=== PATIENT | female | born 1995 | race American Indian/Alaskan Native ===

== ENCOUNTER 2016-05-03 05:00 | Outpatient (CLI) | payer MEDICAID, OTHER ==
[2016-05-03] MEDS ORDERED: LACTATED RINGERS 1,000 ML ONE (05:41)
[2016-05-03] MEDS ORDERED: LACTATED RINGERS 1,000 ML IV ONE (06:02)
[2016-05-03 06:50] VITALS: BP 119/60
[2016-05-03 06:53] LABS: Bilirubin,Urine NEG (Negative); Blood,Urine SM (Negative); Ketones,Urine NEG (Negative); Leukocyte Esterase,Urine NEG (Negative); Mucus,Urine FEW /HPF; Nitrite,Urine NEG (Negative); Protein,Urine <15 mg/dL mg/dL (Negative); Urobilinogen,Urine < 2.0 mg/dL (<2.0)
== END 2016-05-03 08:30 | disposition home or self-care (01) ==
LOC: TRG 05:00
PROVIDERS: ATTEND Obstetrics & Gynecology
DX: O26.893 Other specified pregnancy related conditions, third trimester (principal); O46.93 Antepartum hemorrhage, unspecified, third trimester; R25.2 Cramp and spasm; Z3A.35 35 weeks gestation of pregnancy
CPT/HCPCS: 81001; 96360; 96361; J7120

== ENCOUNTER 2016-05-08 11:51 | Outpatient (CLI) | payer MEDICAID ==
--- NOTE | 2016-05-08 14:19 | Ultrasound Report ---
OB LIMITED Technique: Transabdominal ultrasound with Doppler interrogation. Gestation: Single Position: Cephalic Amniotic Fluid: Normal TIFFANIE = 11.4 cm Heart Rate: 155 BPM
--- NOTE | 2016-05-08 14:19 | Ultrasound Report ---
BIOPHYSICAL PROFILE: Technique: Transabdominal ultrasound with Doppler interrogation. 2 - breathing movements 2 - movements 2 - posture and tone 2 - Qualitative amniotic fluid volume 8 - TOTAL SCORE OF POSSIBLE 8 Heart Rate (bpm) 153
== END 2016-05-08 13:41 | disposition home or self-care (01) ==
LOC: TRG 11:51
PROVIDERS: ATTEND Obstetrics & Gynecology
DX: Z34.90 Encounter for supervision of normal pregnancy, unspecified, unspecified trimester (principal)
CPT/HCPCS: 76815; 76819

== ENCOUNTER 2016-05-29 05:29 | Inpatient (IN) | payer MEDICAID ==
[2016-05-29] MEDS: LACTATED RINGERS 1,000 ML IV NR ×2 (05:55→06:10)
[2016-05-29] MEDS ORDERED: LACTATED RINGERS 1,000 ML ONE ×2 (05:55→05:59)
[2016-05-29] MEDS ORDERED: BICITRA PO ONE (06:04)
[2016-05-29] MEDS ORDERED: REGLAN IV ONE (06:04)
[2016-05-29] MEDS ORDERED: PEPCID IV ONE (06:04)
[2016-05-29 06:12] LABS: Basophils % (Auto) 0.3 % (0.0-1.8); Eosinophils % (Auto) 1.5 % (0.0-4.3); Hematocrit 34.9 % (30.3-42.9); Hemoglobin 11.5 gm/dl (10.1-14.3); Mean Corpuscular HGB Conc 33 % (30-34); Mean Corpuscular Hemoglobin 27 pg (28-32); Mean Corpuscular Volume 82 fl (79-97); Platelet Count 234 K/mm3 (140-440); Red Blood Count 4.27 M/mm3 (3.65-5.03); Red Cell Distribution Width 16.5 % (13.2-15.2)
[2016-05-29] MEDS ORDERED: ANCEF/STERILE WATER 2 GM/20 ML 2 GM/20 ML SYRINGE IV NR (06:50)
[2016-05-29] MEDS ORDERED: PITOCin/NS 20 UNIT/1000ML DRIP 20 UNIT/1,000 ML BAG IV NR (07:00)
--- NOTE | 2016-05-29 07:11 | History and Physical Report ---
History of Present Illness Date of examination: 05/29/16 Date of admission: 05/29/16 05:29 Chief complaint: cs History of present illness: Pt here for elective primary c/s for suspected lga and cpd. Pt was to be delivered between 38-39 wks as per mfm due to CHTN. All risk, benefits, and alternatives were d/w pt and questions were addressed and answered. Consents signed and placed on the chart. Past History : 1 Past Medical History: Reviewed history from 12/28/2014 and no changes required: Left knee injury Past Surgical History: Reviewed history from 11/18/2011 and no changes required: Negative Past Surgical History Past Medical History Abnormal PAP: negative RADHA Exposure: negative Infertility: negative Uterine Anomaly: negative Uterine Surgery (not C/S): negative Other Gynecologic Problems: negative Social Hx: Patient is single Smoking History: Patient has never smoked. Infection History Hx of STD: none Personal hx. of genital herpes: no Partner hx. of genital herpes: no Rash, Viral, or Febrile illness since last LMP? no Varicella/Chicken Pox Status: Unknown TB Risk: no Genetic History Congenital Heart Defect: Mom: no Dad: no Monica Disease: Mom: no Dad: no Thalassemia Mom: no Dad: no Neural Tube Defect Mom: yes Dad: no Down's Syndrome Mom: no Dad: no Dani-Sachs Mom: no Dad: no Sickle Cell Disease/Trait Mom: no Dad: no Hemophilia Mom: no Dad: no Muscular Dystrophy Mom: no Dad: no Cystic Fibrosis Mom: no Dad: no Jerome Chorea Mom: no Dad: no Mental Retardation Mom: no Dad: no Fragile X Mom: no Dad: no Other Genetic/Chromosomal Disorder Mom: no Dad: no Child w/other defect Mom: no Dad: no Other: cousin Enviromental Exposures Enviromental Exposures Reviewed Xray Exposure: no Medication, drug, or alcohol use since LMP: no Chemical/Other Exposure: no Exposure to Cat Liter: no Hx of Parvovirus (Fifth Disease): no Comments: unemployeed Active Medications: None Past History Past Medical History: hypertension Past Surgical History: no surgical history Family/Genetic History: other (see hpi) Social history: no significant social history, single - Obstetrical History Expected Date of Delivery: 06/05/16 Actual Gestation: 39 Week(s) 0 Day(s) : 1 Medications and Allergies Allergies Allergy/AdvReac Type Severity Reaction Status Date / Time No Known Allergies Allergy Verified 05/03/16 06:07 Home Medications Medication Instructions Recorded Confirmed Last Taken Type Docusate Sodium [Colace] 100 mg PO BID PRN #60 capsule 05/29/16 Unknown Rx Ferrous Sulfate [Feosol 325 MG tab] 325 mg PO BID #60 tablet 05/29/16 Unknown Rx Ibuprofen [Motrin 800 MG tab] 800 mg PO Q8HR PRN #60 tablet 05/29/16 Unknown Rx Lidocain2.5%/Prilocai2.5% [Emla] 5 gm TP ONCE #1 tube 05/29/16 Unknown Rx oxyCODONE /ACETAMINOPHEN [Percocet 1 tab PO Q4HR #30 tab 05/29/16 Unknown Rx 5/325] Active Meds: Active Medications Lactated Ringer's (Lactated Ringers) 1,000 mls @ 2,250 mls/hr IV PREOP NR Stop: 05/29/16 08:59 Last Admin: 05/29/16 06:10 Dose: 2,250 mls/hr Oxytocin/Sodium Chloride (Pitocin/Ns 20 Unit/1000ml Drip) 20 unit in 1,000 mls @ 999 mls/hr IV TITR NR Stop: 05/29/16 09:59 Review of Systems All systems: negative Gastrointestinal: no abdominal pain, no nausea, no vomiting, no diarrhea, no constipation Genitourinary: deferred Rectal Exam: deferred - Vital Signs Vital signs: Vital Signs Pulse Resp BP Pulse Ox 111 H 18 125/63 98 05/29/16 05:48 05/29/16 05:48 05/29/16 05:48 05/29/16 05:48 Temp Pulse Resp BP Pulse Ox 112 H 18 125/63 97 05/29/16 06:18 05/29/16 05:48 05/29/16 05:48 05/29/16 06:18 - Physical Exam Breasts: Positive: deferred Cardiovascular: Normal S1, Normal S2 Extremities: Positive: edema - Obstetrical FHR: auscultation normal Results Result Diagrams: 05/29/16 05:50 Abnormal lab results 05/29/16 Range/Units 05:50 MCH 27 L (28-32) pg RDW 16.5 H (13.2-15.2) % [place] % (Auto) 8.5 H (0.0-7.3) % All other labs normal. Assessment and Plan - Patient Problems (1) 39 weeks gestation of Current Visit: Yes Status: Acute (2) Morbid obesity due to excess calories Current Visit: Yes Status: Acute (3) HTN in , chronic Current Visit: Yes Status: Acute Plan to address problem: -bp stable on meds (4) CPD (cephalo-pelvic disproportion) Current Visit: Yes Status: Acute Qualifiers: Cephalopelvic disproportion type: C Fetus number: single or unspecified fetus Plan to address problem: To Or for scheduled elective c/s (5) LGA (large for gestational age) fetus affecting management of mother Current Visit: Yes Status: Acute Plan to address problem: To OR for scheduled elective c/s
[2016-05-29] MEDS ORDERED: BENADRYL IV PRN (07:26)
[2016-05-29] MEDS ORDERED: NARCAN 0.4 MG/1 ML IV PRN ×2 (07:26→09:40)
[2016-05-29] MEDS ORDERED: ZOFRAN IV PRN (07:26)
--- NOTE | 2016-05-29 07:26 | Anesthesia Consultation ---
Anesthesia Consult and Med Hx Date of service: 05/29/16 - Airway Anesthetic Teeth Evaluation: Good ROM Head & Neck: Adequate Mental/Hyoid Distance: Adequate Mallampati Class: Class II Intubation Access Assessment: Probably Good - Pre-Operative Health Status ASA Pre-Surgery Classification: ASA3 Proposed Anesthetic Plan: Epidural, Spinal - Pulmonary Hx Asthma: No COPD: No Hx Pneumonia: No - Cardiovascular System Hx Hypertension: No - Central Nervous System Hx Seizures: No Hx Psychiatric Problems: No - Endocrine Hx Renal Disease: No Hx End Stage Renal Disease: No Hx Hypothyroidism: No Hx Hyperthyroidism: No - Hematic Hx Anemia: No Hx Sickle Cell Disease: No - Other Systems Hx Alcohol Use: No Hx Obesity: Yes (BMI 73.3)
--- NOTE | 2016-05-29 07:26 | Anesthesia Day of Surgery ---
Anesthesia Day of Surgery - Day of Surgery Patient Examined: Yes Patient H&P Reviewed: Yes Patient is NPO: Yes
[2016-05-29] MEDS ORDERED: MORPHINE ONE (07:39)
[2016-05-29] MEDS ORDERED: NEO SYNEPHRINE ONE (07:47)
[2016-05-29] MEDS ORDERED: ANCEF/STERILE WATER 2 GM/20 ML IV ONE (07:55)
[2016-05-29] MEDS ORDERED: SODIUM CHLORIDE FLUSH SYRINGE 10 ML IV NR ×2 (08:00→10:00)
[2016-05-29] MEDS ORDERED: WATER FOR IRRIG STERILE IR ONE (08:15)
[2016-05-29] MEDS ORDERED: NACL 0.9% IR ONE (08:15)
[2016-05-29] MEDS ORDERED: NACL 0.9% 100 ML ONE (08:25)
[2016-05-29] MEDS ORDERED: NACL 0.9% 1000 ML 1,000 ML ONE (08:25)
--- NOTE | 2016-05-29 08:28 | Admit Criteria Form ---
Admission Criteria Documentation: AMBULATORY SURGERY EXCEPTION CRITERIA Ambulatory Surgery Exception Criteria ( Place 'X' for any and all applicable criteria): Surgery or procedure performed on ambulatory basis may require inpatient stay for[A] ANY ONE of the following(1)(2)(3)(4)(5)(6)(7)(8)(9): [X] I. A preoperative situation, condition, or finding that warrants inpatient stay as indicated by ANY ONE of the following: [] a) Inpatient care needed because of severity of a disease or condition rather than the surgery (eg, severe cardiac or respiratory disease, severe infection) (15) (16 ) (17) (18) [] b) Emergent procedure (eg, angioplasty for acute ischemia)(19) [] c) Complex surgical approach or situation as indicated by ANY ONE of the following(3): [] i) Open approach needed instead of usual endoscopic, transcatheter, or other less invasive procedure [] ii) Difficult approach because of previous operation [] iii) Airway monitoring required after open neck procedures(20)(21) [] iv) Large mass requiring unusually extensive dissection [] v) Additional complicating feature requiring inpatient care (eg, drain management)(22(23): [X] d) Major surgery in a pt with high anesthetic risk as indicated by ANY ONE of the following (2)(3)(5)(7)(8): [X] i) ASA risk class III or higher (severe systemic disease impairing function) [D] [] ii) Advanced age (eg, older than 85 years)(14)(24) [] iii) Symptomatic heart failure(25) [] iv) Symptomatic asthma or COPD(8)(21) [X] v) Morbid obesity with hemodynamic or respiratory problems(20)( 21)(26)(27) [] vi) Obstructive sleep apnea(20)(21) [] vii) Former premature infants who are younger than 60 weeks [] viii) High risk for severe postoperative abnormalities (eg, severe postoperative hypocalcemia after parathyroidectomy for severe hyperparathyroidism)(27)( 28) [] ix) Unstable angina(25) [] e) Drug-related risk requiring inpatient stay as indicated by ANY ONE of the following(5)(10)(14)(32)(33) [] i) Procedure requires discontinuing drugs or other therapy (eg , antiarrhythmic medication, antiseizure medication), which necessitates inpatient observation or treatment.(18)(31) [] ii) Major surgery and high risk drug use as indicated by ANY ONE of the following: [] 1) Active abuse of cocaine or similar drug [] 2) Monoamine oxidase inhibitor use [] 3) Other drug identified as posing risk [] f) Inadequate outpatient care situation as indicated by ANY ONE of the following(5)(10)(14)(32)(33) [] i) Patient lives remote from medical facility and procedure has urgent complication potential, and temporary nearby residence cannot be arranged [] ii) Patient will have postprocedure incapacitation and inadequate assistance at home, or alternative level of care cannot be arranged. [] iii) Patient will have long general anesthesia or procedure side effect resolution time, and competent person to stay with patient on first postoperative night at home or alternative level of care cannot be arranged. []iv) Other inadequate outpatient situation that cannot be handled by other means [] II. A perioperative event, condition, or finding that warrants inpatient stay as indicated by ANY ONE of the following (1)(2)(3): [] a) Inadequate physiologic recovery: cardiovascular, respiratory, or hemodynamic status not normal or near preoperative baseline(18) [] b) Hemodynamic instability [] c) Patient not alert with near normal or baseline mental status [] d) Temperature not normal or as expected and not appropriate for outpatient treatment of condition [] e) Ambulatory or appropriate activity level status not yet achieved post procedure [E](34)(35)(36) [] f) Operative site not appropriate (eg, unexpected or excessive drainage or bleeding) [] g) Postoperative effects not resolved or adequately managed (eg, significant pain or vomiting not appropriate for outpatient or next level of care)(10)(12) [] h) Complicating features requiring inpatient care as indicated by ANY ONE of the following(37): [] i) Severe complications of procedure (eg, bowel injury, airway compromise, vascular injury,severe hemorrhage) [] ii) Extensive (eg, dissection far beyond usual scope of procedure ) or prolonged (eg, 120 minutes beyond usual) surgery needed requiring inpatient postoperative care [] iii) Conversion to an open or complex procedure that requires inpatient care (eg, open vs laparoscopic cholecystectomy, abdominal vs vaginal hysterectomy)(38) [] iv) Comorbid condition or test result identified during or post procedure that requires inpatient care (7) [] v) Malignant hyperthermia(30) [] vi) Other complicating feature requiring inpatient care(22)(23) Inpatient stay may be needed until ALL of the following are present (1)(2)(3)(4) (5)(6)(10)(14)(33)(40): []a) Physiologic recovery: cardiovascular, respiratory, and hemodynamic status normal or near preoperative baseline []b) Hemodynamic stability []c) Patient alert, with near normal or baseline mental status []d) Temperature appropriate: patient afebrile or temperature appropriate for outpt treatment of condition []e) Activity level appropriate: ambulatory or appropriate activity level post procedure []f) Operative site appropriate as indicated by ALL of the following: []i) Site dry or with expected drainage []ii) Any blood noted is as expected for procedure. []g) Postoperative effects resolved or managed as indicated by ALL of the following: []i) Pain management appropriate for outpatient (or next level of) care(10) []ii) Minimal nausea and vomiting: if present, successfully treated with oral medication(12) []iii) Headache, dizziness, or drowsiness (if present) are mild. []h) Voiding status acceptable as indicated by ANY ONE of the following: []i) Voiding spontaneously []ii) No voiding but instructions given for follow-up in 6 to 8 hours []iii) Urinary catheter in place, and instructions given for follow-up []i) Complicating features requiring inpatient care manageable at a lower level of care(37) []j) Comorbid conditions manageable at a lower level of care(37) The original [employer] [facility] [facility] content created by [employer] has been revised. The portions of the content which have been revised are identified through the use of italic text or in bold, and [facility] has neither reviewed nor approved the modified material. All other unmodified content is copyright [employer] [facility] [employer]. Please see references footnoted in the original [employer] [facility] edition 2016 Admission Criteria Met: Yes
[2016-05-29] MEDS ORDERED: ZOFRAN ONE (09:23)
[2016-05-29] MEDS ORDERED: MYLICON PO PRN (09:40)
[2016-05-29] MEDS ORDERED: LANSINOH TP PRN (09:40)
[2016-05-29] MEDS ORDERED: NORCO 5/325 PO PRN (09:40)
[2016-05-29] MEDS ORDERED: MILK OF MAGNESIA PO PRN (09:40)
[2016-05-29] MEDS ORDERED: TUCKS PAD TP PRN (09:40)
--- NOTE | 2016-05-29 09:51 | Operative Report ---
Operative Report Operative Report: Date of procedure: 05/29/2016 Pre-operative diagnosis: 39 weeks gestation Morbid obesity Suspected CPD LGA infant Post-operative diagnosis: Same plus hemorrhage Procedure name(s): Primary low transverse section via Pfannenstiel skin incision Vacuum assisted delivery Surgeon: Dr. Fierro Mold Cleaner: Ms. Coronaty Luis Anesthesia: Spinal EBL: 1300 mL Urine output: 50 mL of clear urine at the end of the procedure Fluids: 1400 mL Findings: Liveborn male Apgars of 3 and 8 at one and 5 minutes weight 9 lbs. 6 oz. 4248 g Normal fallopian tubes and ovaries bilaterally. Normal uterus Indications: Patient was made followed by [facility] secondary to history of hypertension and morbid obesity. Decision was made that due to the patient's hypertension that the patient be delivered by 39 weeks. Patient was examined and felt to have a contracted pelvis. Patient was presented with the option of elective primary section versus trial of labor. Patient desired elective primary section. All consents were signed and placed on the chart after all questions have been addressed and answered. Procedure: Patient was taking to the operating room. Patient was then prepped and draped in sterile fashion after anesthesia was found to be adequate. A low transverse skin incision was made with the scalpel and carried down to the underlying layer of fascia with the Bovie. The fascia was then incised in the midline and this incision was extended bilaterally with the Bovie. The superior aspect of the fascia was grasped with Nu clamps tented upward and dissected off of the anterior rectus muscles with the scalpel. In similar fashion the inferior aspect of the fascia was grasped with Nu clamps tented upward and dissected off of the anterior rectus muscles. The rectus muscles were then bluntly divided in the midline. The peritoneum was identified and entered into sharply. The [place] retractor was placed. A lower transverse uterine incision was made with the scalpel and extended bilaterally with the bandage scissors. Artificial rupture of membranes was performed yielding amniotic fluid. Due to significant adipose tissue delivery of the 's head was difficult. The Kiwi vacuum was applied 3 with 2 pop offs. The infant 's head was delivered atraumatically with the pull of the third application of the Kiwi vacuum after rectus muscles has then transected bilaterally. The 's head was then delivered atraumatically. Her was also prolapsing of the umbilical cord prior to delivery of the infant's head. The anterior shoulder and rest of delivered without difficulty. The umbilical cord was clamped x2. The cord was cut. The infant was then placed in sterile bassinet. The cord blood was not collected. The placenta was manually extracted in its entirety. The uterus was exteriorized and cleared of all clots and debris. The uterine incision was closed using 0 Vicryl in a running locking fashion. A second imbricating layer of the same suture was then created. The posterior cul-de-sac was copiously irrigated. The uterus was returned to the abdomen. The gutters were also irrigated. The anterior rectus muscles were reapproximated using 3-0 Vicryl bilaterally. The anterior rectus fascia was reapproximated using 0 Vicryl in a running fashion. The subcuticular fat was reapproximated using 2-0 Vicryl in a running fashion. The skin was reapproximated with 4-0 Monocryl in a subcuticular stitch. The patient tolerated the procedure well. Sponge lap and needle counts were all correct x3. Patient was taken to the recovery room awake and in stable condition.
[2016-05-29] MEDS ORDERED: ANCEF/NS 1 GM/50 ML 1 GM/50 ML BAG IV SCH (10:00)
--- NOTE | 2016-05-29 10:24 | Post Anesthesia Evaluation ---
- Post Anesthesia Evaluation Patient Participated: Yes Airway Patent: Yes Stable Respiratory Function: Yes Nausea/Vomiting: No Temp > 96.8F: Yes Pain Manageable: Yes Adequeate Hydration: Yes Anesthesia Complications: No Block Receding Appropriately: Not Applicable Patient on Ventilator: No
--- NOTE | 2016-05-29 10:31 | Post Anesthesia Evaluation ---
- Post Anesthesia Evaluation Patient Participated: Yes Airway Patent: Yes Stable Respiratory Function: Yes Nausea/Vomiting: No Temp > 96.8F: Yes Pain Manageable: Yes Adequeate Hydration: Yes Anesthesia Complications: No Block Receding Appropriately: Yes Patient on Ventilator: No
[2016-05-29] MEDS: DILAUDID IV PRN ×2 (10:35→15:46)
[2016-05-29] MEDS: ANCEF/NS 1 GM/50 ML 1 GM/50 ML BAG IV SCH ×2 (15:50→23:01)
[2016-05-29 22:53] LABS: Hematocrit 29.6 % (30.3-42.9)
[2016-05-29] MEDS: MOTRIN PO PRN (22:53)
[2016-05-29] MEDS: FEOSOL PO SCH (23:02)
--- NOTE | 2016-05-30 12:44 | Progress Note ---
Assessment and Plan - Patient Problems (1) delivery due to maternal disorder, delivered, [facility] On[facility] Date: ~05/29/16 Current Visit: Yes Status: Acute (2) 39 weeks gestation of Current Visit: Yes Status: Acute (3) CPD (cephalo-pelvic disproportion) Current Visit: Yes Status: Acute Qualifiers: Cephalopelvic disproportion type: C Fetus number: single or unspecified fetus (4) HTN in , chronic Current Visit: Yes Status: Acute (5) LGA (large for gestational age) fetus affecting management of mother Current Visit: Yes Status: Acute (6) Morbid obesity due to excess calories Current Visit: Yes Status: Acute Subjective - Subjective Date of service: 05/30/16 Principal diagnosis: IUP 39 wk, elective c/s for morbid obesity, large , contracted pelvis Interval history: doing well post c/s, c/o intermittent shooting pain in L leg--explained prob due to spinal and will resolve. Patient reports: appetite normal, voiding normally, pain poorly controlled ( will adjust meds), ambulating normally : doing well Objective - Vital Signs Latest vital signs: Vital Signs Temp Pulse Resp BP 05/30/16 04:30 98.6 F 88 22 127/89 05/30/16 00:45 99 F 62 20 136/60 05/29/16 22:53 18 05/29/16 20:30 99 F 63 16 100/46 05/29/16 17:20 98.5 F 106 H 20 126/53 Intake and Output 05/29/16 05/30/16 05/30/16 22:59 06:59 14:59 Intake Total 750 350 Output Total 1800 900 Balance -1050 -550 Intake: IV 550 50 ANCEF/NS 1 GM/50 ML 1 gm 50 50 In 50 ml @ 0 mls/hr IV Q8H ARMANDO Rx#:[id number] PITOCin/NS 20 UNIT/1000ML 500 DRIP 20 unit In 1,000 ml @ 999 mls/hr IV TITR NR Rx#:[id number] Oral 200 300 Output: Urine 1800 900 Indwelling Catheter 1400 0 Uretheral (Emmanuel) 400 Void 900 Other: Total, Intake Amount 200 100 Total, Output Amount 600 300 # Voids Indwelling Catheter 0 - Exam Breasts: Present: deferred Abdomen: Present: normal appearance, soft (incision dry, huge pannus is firm and indurated--prob chronic problem) Uterus: Present: normal (not bleeding heavily, no one could feel fundus, BMI 72) Extremities: Present: normal Incision: Present: normal, dry - Labs Labs: Abnormal lab results 05/29/16 Range/Units 22:40 Hgb 10.0 L (10.1-14.3) gm/dl Hct 29.6 L (30.3-42.9) %
[2016-05-30] MEDS: MOTRIN PO PRN (13:42)
[2016-05-30] MEDS: PERCOCET 5/325 PO PRN ×2 (13:44→20:55)
[2016-05-30] MEDS: FEOSOL PO SCH (13:45)
[2016-05-31] MEDS: PERCOCET 5/325 PO PRN ×4 (00:51→23:07)
[2016-05-31] MEDS: FEOSOL PO SCH (08:25)
[2016-05-31] MEDS: MOTRIN PO PRN ×2 (08:25→17:51)
--- NOTE | 2016-05-31 09:46 | Progress Note ---
Subjective Date of service: 05/31/16 Principal diagnosis: IUP 39 wk, elective c/s for morbid obesity, large , contracted pelvis Interval history: 20 yo morbidly obese, female s/p on 05/29/16 under combined spinal epidural. Epidural removed at end of . Patient reports that during the placement of the spinal she felt a sharp pain in the left leg and has had that pain since then. Pain is sharp and shoots down back of left leg and into vaginal area. She reports that she did not have this problem before the c- section. Sensation is intact and patient able to ambulate but has intermittent shooting pain in left leg. No weakness. Discussed with patient that it could be from spinal-epidural placement. For now will watch and see if it goes away. Can take PO pain meds and NSAIDs for pain. If it does not start to go away over next 1-2 weeks then contact anesthesia department or OB doctor for further evaluation. Objective - Constitutional Vitals: Vital Signs - 12hr 05/31/16 05/31/16 00:40 00:51 Temperature 98.6 F Pulse Rate [ 90 From Monitor] Respiratory 20 20 Rate Blood Pressure 105/57 [Left Arm] - Labs CBC & Chem 7: 05/29/16 22:40
--- NOTE | 2016-05-31 10:45 | Progress Note ---
Assessment and Plan - Patient Problems (1) delivery due to maternal disorder, [facility] Current Visit: Yes Status: Acute (2) 39 weeks gestation of Current Visit: Yes Status: Acute (3) CPD (cephalo-pelvic disproportion) Current Visit: Yes Status: Acute Qualifiers: Cephalopelvic disproportion type: C Fetus number: single or unspecified fetus (4) HTN in , chronic Current Visit: Yes Status: Acute (5) LGA (large for gestational age) fetus affecting management of mother Current Visit: Yes Status: Acute (6) Morbid obesity due to excess calories Current Visit: Yes Status: Acute Plan to address problem: Known BMI of at least 72 Subjective - Subjective Principal diagnosis: IUP 39 wk, elective c/s for morbid obesity, large infant, contracted pelvis Interval history: doing well post c/s, c/o intermittent shooting pain in L leg--explained prob due to spinal and will resolve. Patient reports: appetite normal, voiding normally, pain well controlled (has sciatica prob from epidural, Dr Marks recommends out pt f/u--should resolve) Objective - Vital Signs Latest vital signs: Vital Signs Temp Pulse Resp BP 05/31/16 00:51 20 05/31/16 00:40 98.6 F 90 20 105/57 05/30/16 17:00 98.6 F 108 H 20 112/56 Intake and Output 05/30/16 05/31/16 05/31/16 22:59 06:59 14:59 Intake Total 440 360 Balance 440 360 Intake: Oral 440 Intake, Free Water 360 Other: Total, Intake Amount 200 # Voids Void 1 1 - Exam Narrative Exam: This morbidly obese patient can barely get up out of a chair or into or out of the bed. This is due to her weight and not due to any pain issues. Breasts: Present: deferred Abdomen: Present: normal appearance, soft, normal bowel sounds Extremities: Present: edema (4+ woody edema at least to knees) Incision: Present: normal, dry, intact (looks good, abdomen above it has "peau de orange" woody feel but this is not related to the c/s incision)
--- NOTE | 2016-06-01 08:49 | Discharge Summary ---
Providers - Providers Date of Admission: 05/29/16 05:29 Date of discharge: 06/01/16 (pt agrees with d/c ) Attending physician: ELTON SANDS Primary care physician: ELTON SANDS Hospitalization Reason for admission: section Delivery: Procedure: primary low transverse Episiotomy: none Laceration: none Incision: normal, dry, intact Other procedures: none complications: none Discharge diagnosis: IUP at term delivered baby: male Hospital course: uncomplicated section DX LGA; morbid obesity; chronic htn Pt w/o complaints VSS FF below umb Lochia small Incision dry and intact. Reviewed wound care several times with pt and her mom due to her large panus. Area needs to be kept clean and dry. H&H 02/21 Doing well s/p section. P: d/c today RTO 1 week for incision cheak and son's circ All questions addressed. Call with any VALDEZ, blurred vision, chest pain. Condition at discharge: Good Disposition: DISCHARGED TO HOME OR SELFCARE - Discharge Diagnoses (1) delivery due to maternal disorder, delivered, curr hospitaliz Status: Acute Comment: rto one week Plan - Discharge Medications Prescriptions: Docusate Sodium [Colace] 100 mg PO BID PRN #60 capsule PRN Reason: Constipation Ferrous Sulfate [Feosol 325 MG tab] 325 mg PO BID #60 tablet Ibuprofen [Motrin 800 MG tab] 800 mg PO Q8HR PRN #60 tablet PRN Reason: Pain Lidocain2.5%/Prilocai2.5% [Emla] 5 gm TP ONCE #1 tube oxyCODONE /ACETAMINOPHEN [Percocet 5/325] 1 tab PO Q4HR #30 tab - Provider Discharge Summary Activity: routine, no sex for 6 weeks, no heavy lifting 4 weeks, no strenuous exercise Diet: routine Instructions: routine Additional instructions: [] Smoking cessation referral if applicable(refer to patient education folder for contact #) [] Refer to [facility] Booklet Call your doctor immediately for: * Fever > 100.5 * Heavy vaginal bleeding ( >1 pad per hour) * Severe persistent headache * Shortness of breath * Reddened, hot, painful area to leg or breast * Drainage or odor from incision. * Keep incision clean and dry at all times and follow doctor's instructions regarding bathing/showering - Follow up plan Follow up: ELTON SANDS MD [Primary Care Provider] - 7 Days (Congratulations! Please call [phone] to schedule an appointment in 1 week for your postoperative care and your son's circumcision. Bring the EMLA cream with you to his visit. Please take medication as prescribed. Call with headache, unrelieved with Tylenol, blurred vision, chest pain. Call with concerns.)
[2016-06-01] MEDS: MOTRIN PO PRN (09:49)
[2016-06-01] MEDS: FEOSOL PO SCH (09:50)
[2016-06-01] MEDS ORDERED: FLUARIX QUAD 2016-2017(36 MOS+) IM ONE (12:08)
[2016-06-01] MEDS ORDERED: BOOSTRIX IM ONE (12:09)
[2016-06-01 13:25] VITALS: BP 125/53
== END 2016-06-01 13:40 | disposition home or self-care (01) | DRG 765 ==
LOC: APU 05:29 → OB 11:23
PROVIDERS: ADMIT Obstetrics & Gynecology; ATTEND Obstetrics & Gynecology
PROC: 10D00Z1 Extraction of Products of Conception, Low, Open Approach (ICD-10-PCS; principal; 2016-05-29)
PROC: 10907ZC Drainage of Amniotic Fluid, Therapeutic from Products of Conception, Via Natural or Artificial Opening (ICD-10-PCS; 2016-05-29)
DX: O75.0 Maternal distress during labor and delivery (principal); Z68.45 Body mass index [BMI] 70 or greater, adult; O72.1 Other immediate postpartum hemorrhage; Z3A.39 39 weeks gestation of pregnancy; Z37.0 Single live birth; E66.01 Morbid (severe) obesity due to excess calories; O16.4 Unspecified maternal hypertension, complicating childbirth; O99.214 Obesity complicating childbirth; O33.9 Maternal care for disproportion, unspecified; O36.63X0 Maternal care for excessive fetal growth, third trimester, not applicable or unspecified
CPT/HCPCS: 36415; 85014; 85018; 85025; 86850; 86900; 86901; 88307; 90471; 90686; 90715; 99211; C9250; G0008; G0463; J0690; J1170; J2270; J2370; J2405; J2590; J2765; J7030; J7120